=== PATIENT | male | born 1970 | race African-American/Black ===

== ENCOUNTER 2021-05-23 16:19 | Inpatient (IN) | payer SELFPAY ==
[~2021-05-23] VITALS: Ht 185.4 cm; Wt 99.8 kg
[2021-05-23] MEDS ORDERED: FUROSEMIDE INJ 10 MG/ML 4 ML VIAL IV ONE (16:45)
[2021-05-23] MEDS ORDERED: ASPIRIN 81 MG CHEW TAB PO ONE ×2 (16:45→18:45)
[2021-05-23 17:07] LABS: BASOPHILS % 0.5 % (0.0-1.0); EOSINOPHILS # (AUTO) 0.2 (0.0-0.4); HEMATOCRIT 35.1 % (38.2-49.6); HEMOGLOBIN 11.4 g/dL (14.0-18.0); LYMPHOCYTES # (AUTO) 1.1 (1.0-3.2); LYMPHOCYTES % 26.1 % (18.0-39.1); MEAN CORPUSCULAR HEMOGLOBIN 26.6 pg (28-32); MEAN CORPUSCULAR HGB CONC 32.5 g/dL (31-35); MEAN CORPUSCULAR VOLUME 81.8 fL (81-99); MONOCYTES # (AUTO) 0.4 (0.2-0.8); MONOCYTES % 10.2 % (4.4-11.3); NEUTROPHILS # (AUTO) 2.5 (2.1-6.9); PLATELET COUNT 135 x10e3/uL (140-360); RED BLOOD COUNT 4.29 x10e6/uL (4.3-5.7); RED CELL DISTRIBUTION WIDTH 18.2 % (11.7-14.4)
[2021-05-23 17:19] LABS: INR 1.23; PROTHROMBIN TIME 16.5 seconds (11.9-14.5)
[2021-05-23 17:28] LABS: ALBUMIN 3.3 g/dL (3.5-5.0); ALBUMIN/GLOBULIN RATIO 1.1 (0.8-2.0); ANION GAP 13.9 mmol/L (8-16); CALCIUM 8.5 mg/dL (8.4-10.2); CREATININE, SERUM 1.92 mg/dL (0.72-1.25); POTASSIUM 3.9 mmol/L (3.5-5.1)
[2021-05-23 20:27] VITALS: BP 146/101
[2021-05-23 21:47] VITALS: BP 146/101
[2021-05-23 22:39] VITALS: BP 146/101
[2021-05-23 23:57] VITALS: BP 154/105
[2021-05-24 04:05] VITALS: BP 121/86
[2021-05-24 05:34] LABS: BASOPHILS % 0.6 % (0.0-1.0); EOSINOPHILS # (AUTO) 0.2 (0.0-0.4); EOSINOPHILS % 5.1 % (0.0-6.0); HEMATOCRIT 34.3 % (38.2-49.6); HEMOGLOBIN 11.1 g/dL (14.0-18.0); LYMPHOCYTES # (AUTO) 0.9 (1.0-3.2); LYMPHOCYTES % 28.3 % (18.0-39.1); MEAN CORPUSCULAR HEMOGLOBIN 26.9 pg (28-32); MEAN CORPUSCULAR HGB CONC 32.4 g/dL (31-35); MEAN CORPUSCULAR VOLUME 83.1 fL (81-99); MONOCYTES # (AUTO) 0.4 (0.2-0.8); NEUTROPHILS # (AUTO) 1.8 (2.1-6.9); PLATELET COUNT 123 x10e3/uL (140-360); RED BLOOD COUNT 4.13 x10e6/uL (4.3-5.7); RED CELL DISTRIBUTION WIDTH 18.2 % (11.7-14.4)
[2021-05-24 05:53] LABS: ANION GAP 12.1 mmol/L (8-16); CALCIUM 8.2 mg/dL (8.4-10.2); CREATININE, SERUM 1.74 mg/dL (0.72-1.25); POTASSIUM 4.1 mmol/L (3.5-5.1)
[2021-05-24 06:15] LABS: CREATINE KINASE MB 2.5 ng/mL (0-5.0)
[2021-05-24 08:00] VITALS: BP 137/99
[2021-05-24 08:57] VITALS: BP 136/97
[2021-05-24] MEDS: FUROSEMIDE INJ 10 MG/ML 4 ML VIAL IV SCH (09:13)
[2021-05-24] MEDS ORDERED: LISINOPRIL10 MG PO (09:29)
[2021-05-24] MEDS ORDERED: GLIPIZIDE5 MG PO (09:29)
[2021-05-24] MEDS ORDERED: CARVEDILOL12.5 MG PO (09:29)
[2021-05-24] MEDS ORDERED: DEXTROSE 50% SYRINGE 50 ML IV PRN (10:15)
[2021-05-24] MEDS: INSULIN LISPRO 100 UNIT/1 ML 3ML VIAL SQ SCH ×3 (11:30→21:00)
[2021-05-24 12:26] LABS: CREATINE KINASE MB 2.4 ng/mL (0-5.0)
[2021-05-24 12:31] VITALS: BP 135/98
[2021-05-24 15:03] LABS: AMPHETAMINES SCREEN,URINE NEGATIVE (NEGATIVE); BENZODIAZEPINES SCREEN,URINE NEGATIVE (NEGATIVE); PHENCYCLIDINE SCREEN,URINE NEGATIVE (NEGATIVE)
[2021-05-24 15:31] VITALS: BP 134/94
[2021-05-24] MEDS: CARVEDILOL 12.5 MG TAB PO SCH (17:12)
[2021-05-24 21:00] VITALS: BP 134/94
[2021-05-25] VITALS: BP 140/98
[2021-05-25 04:00] VITALS: BP 133/95
[2021-05-25 06:23] LABS: BASOPHILS % 0.7 % (0.0-1.0); EOSINOPHILS # (AUTO) 0.1 (0.0-0.4); EOSINOPHILS % 2.9 % (0.0-6.0); HEMATOCRIT 34.4 % (38.2-49.6); HEMOGLOBIN 11.2 g/dL (14.0-18.0); LYMPHOCYTES # (AUTO) 1.2 (1.0-3.2); MEAN CORPUSCULAR HEMOGLOBIN 26.7 pg (28-32); MEAN CORPUSCULAR HGB CONC 32.6 g/dL (31-35); MEAN CORPUSCULAR VOLUME 81.9 fL (81-99); MONOCYTES # (AUTO) 0.4 (0.2-0.8); MONOCYTES % 9.8 % (4.4-11.3); NEUTROPHILS # (AUTO) 2.4 (2.1-6.9); NEUTROPHILS % 57.4 % (38.7-80.0); PLATELET COUNT 133 x10e3/uL (140-360)
[2021-05-25 06:47] LABS: ANION GAP 11.9 mmol/L (8-16); CALCIUM 8.8 mg/dL (8.4-10.2); CREATININE, SERUM 1.68 mg/dL (0.72-1.25); POTASSIUM 3.9 mmol/L (3.5-5.1)
[2021-05-25] MEDS: INSULIN LISPRO 100 UNIT/1 ML 3ML VIAL SQ SCH ×2 (07:30→11:30)
[2021-05-25 07:55] VITALS: BP 137/99
[2021-05-25 07:59] VITALS: BP 136/92
[2021-05-25] MEDS ORDERED: LISINOPRIL 10 MG TAB PO SCH ×2 (09:00)
[2021-05-25] MEDS: FUROSEMIDE INJ 10 MG/ML 4 ML VIAL IV SCH (09:07)
[2021-05-25] MEDS: CARVEDILOL 12.5 MG TAB PO SCH (09:08)
[2021-05-25 13:00] VITALS: BP 127/91
== END 2021-05-25 14:25 | disposition home or self-care (01) | DRG 291 ==
LOC: ER 16:27 → ERHOLD 18:43 → MED/SURG3 20:25
PROVIDERS: ADMIT Internal Medicine; ATTEND Internal Medicine
DX: I13.0 Hypertensive heart and chronic kidney disease with heart failure and stage 1 through stage 4 chronic kidney disease, or unspecified chronic kidney disease (principal); I50.23 Acute on chronic systolic (congestive) heart failure; N17.9 Acute kidney failure, unspecified; E11.9 Type 2 diabetes mellitus without complications; Z79.4 Long term (current) use of insulin; Z85.038 Personal history of other malignant neoplasm of large intestine; N18.9 Chronic kidney disease, unspecified; E78.5 Hyperlipidemia, unspecified; Z20.822 Contact with and (suspected) exposure to COVID-19
CPT/HCPCS: 36415; 71045; 80048; 80053; 80307; 82550; 82553; 82948; 83036; 83880; 84484; 85025; 85610; 93005; 93306; 94799; 99284; J1940; U0002

== ENCOUNTER 2021-06-11 17:18 | Emergency (ER) | payer BC ==
[~2021-06-11] VITALS: Ht 190.5 cm; Wt 99.8 kg
[~2021-06-11 17:18] MED LIST: CARVEDILOL12.5 MG PO; GLIPIZIDE5 MG PO; LISINOPRIL10 MG PO
[2021-06-11] MEDS ORDERED: FUROSEMIDE INJ 10 MG/ML 4 ML VIAL IV ONE (19:30)
== END 2021-06-11 20:23 | disposition home or self-care (01) ==
LOC: ER 17:40
DX: R60.9 Edema, unspecified (principal); E11.9 Type 2 diabetes mellitus without complications; I50.9 Heart failure, unspecified; Z85.038 Personal history of other malignant neoplasm of large intestine
CPT/HCPCS: 71046; 93005; 99284; J1940